=== PATIENT | male | born 1970 | race American Indian/Alaskan Native ===

== ENCOUNTER 2019-07-19 15:09 | Emergency (ER) | payer SELFPAY ==
--- NOTE | 2019-07-19 15:31 | Emergency Department Report ---
Blank Doc - Documentation Documentation: 48-year-old male that presents with right lateral rib pain and SOB. Denies any injuries or trauma. This initial assessment/diagnostic orders/clinical plan/treatment(s) is/are subject to change based on patient's health status, clinical progression and re- assessment by fellow clinical providers in the ED. Further treatment and workup at subsequent clinical providers discretion. Patient/guardians urged not to elope from the ED as their condition may be serious if not clinically assessed and managed. Initial orders include: 1- Patient sent to [facility] for further evaluation and treatment 2- CXR 3- labs 4- EKG
--- NOTE | 2019-07-19 16:04 | XRay Report ---
CHEST 2 VIEWS INDICATION / CLINICAL INFORMATION: Chest Pain. COMPARISON: None available. FINDINGS: SUPPORT DEVICES: None. HEART / MEDIASTINUM: No significant abnormality. LUNGS / PLEURA: No significant pulmonary or pleural abnormality. No pneumothorax. ADDITIONAL FINDINGS: No significant additional findings. IMPRESSION: 1. No acute abnormality of the chest. Signer Name: Cordell Liu MD Signed: 07/19/2019 4:00 PM Workstation Name: [id number]
[2019-07-19 16:52] LABS: Basophils % (Auto) 0.7 % (0.0-1.8); Eosinophils # (Auto) 0.2 K/mm3 (0.0-0.4); Eosinophils % (Auto) 2.8 % (0.0-4.3); Hematocrit 51.1 % (35.5-45.6); Hemoglobin 17.5 gm/dl (11.8-15.2); Lymphocytes % (Auto) 15.1 % (13.4-35.0); Mean Corpuscular HGB Conc 34 % (32-34); Mean Corpuscular Volume 87 fl (84-94); Monocytes # (Auto) 0.6 K/mm3 (0.0-0.8); Monocytes % (Auto) 9.3 % (0.0-7.3); Platelet Count 202 K/mm3 (140-440); Red Blood Count 5.91 M/mm3 (3.65-5.03); Red Cell Distribution Width 13.5 % (13.2-15.2)
[2019-07-19 17:35] LABS: Alanine Aminotransferase 17 units/L (7-56); Albumin 4.5 g/dL (3.9-5); BUN/Creatinine Ratio 14; Blood Urea Nitrogen 15 mg/dL (9-20); Hemolysis Index 29
[2019-07-19] MEDS ORDERED: CYCLOBENZAPRINE 10 MG TAB PO ONE (18:34)
--- NOTE | 2019-07-19 19:02 | Emergency Department Report ---
ED General Adult HPI - General Chief complaint: Dyspnea/Respdistress Stated complaint: NAOMY Time Seen by Provider: 07/19/19 15:30 Source: patient, family Mode of arrival: Ambulatory Limitations: No Limitations - History of Present Illness Initial comments: Patient is a 48-year-old male presents emergency room with complaints of right- sided rib pain that began 3 days ago. He has associated dry cough and pain with taking a deep breath. He denies any productive cough, fever, nausea, vomiting, diarrhea, congestion. He states that he has been moving houses and has been lifting a lot of heavy furniture, he denies any fall or injury. He has a past medical history of sarcoidosis but does not take any medications for it and has not had an issue in over 2 years. He states he also has a history of hypertension but has not taken medications for it in over a year. He denies any allergies to medications. He is a non-smoker. - Related Data Previous Rx's Medication Instructions Recorded Last Taken Type Naproxen [EC-Naprosyn] 500 mg PO BID PRN #14 tablet. 07/20/19 Unknown Rx methOCARBAMOL [Robaxin TAB] 500 mg PO QHS PRN #10 tablet 07/20/19 Unknown Rx Allergies Allergy/AdvReac Type Severity Reaction Status Date / Time No Known Allergies Allergy Verified 07/19/19 21:17 ED Review of Systems ROS: Stated complaint: NAOMY Other details as noted in HPI Comment: All other systems reviewed and negative ED Past Medical Hx - Past Medical History Previous Medical History?: Yes Additional medical history: Sarcoidosis - Surgical History Past Surgical History?: Yes Additional Surgical History: Right hip replacement - Social History Smoking Status: Never Smoker Substance Use Type: None - Medications Home Medications: Home Medications Medication Instructions Recorded Confirmed Last Taken Type Naproxen [EC-Naprosyn] 500 mg PO BID PRN #14 tablet. 07/20/19 Unknown Rx methOCARBAMOL [Robaxin TAB] 500 mg PO QHS PRN #10 tablet 07/20/19 Unknown Rx ED Physical Exam - General Limitations: No Limitations General appearance: alert, in no apparent distress - Head Head exam: Present: atraumatic, normocephalic - Eye Eye exam: Present: normal appearance - ENT ENT exam: Present: mucous membranes moist - Respiratory Respiratory exam: Present: normal lung sounds bilaterally, chest wall tenderness (right lower anterior chest wall ttp, no deformity, no ecchymosis, no crepitus). Absent: respiratory distress, wheezes, rales, rhonchi, stridor, accessory muscle use, decreased breath sounds, prolonged expiratory - Cardiovascular Cardiovascular Exam: Present: regular rate, normal rhythm, normal heart sounds. Absent: systolic murmur, diastolic murmur, rubs, gallop - Neurological Exam Neurological exam: Present: alert, oriented X3 - Psychiatric Psychiatric exam: Present: normal affect, normal mood - Skin Skin exam: Present: warm, dry, intact ED Course Vital Signs 07/19/19 07/19/19 15:30 21:05 Temperature 97.5 F L Pulse Rate 86 87 Respiratory 22 17 Rate Blood Pressure 157/115 Blood Pressure 156/103 [Left] O2 Sat by Pulse 98 97 Oximetry ED Medical Decision Making - Lab Data Result diagrams: 07/19/19 16:30 07/19/19 16:30 Lab Results 07/19/19 07/19/19 07/19/19 Range/Units 16:30 16:30 18:30 WBC 6.5 (4.5-11.0) K/mm3 RBC 5.91 H (3.65-5.03) M/mm3 Hgb 17.5 H (11.8-15.2) gm/dl Hct 51.1 H (35.5-45.6) % MCV 87 (84-94) fl MCH 30 (28-32) pg MCHC 34 (32-34) % RDW 13.5 (13.2-15.2) % Plt Count 202 (140-440) K/mm3 Lymph % (Auto) 15.1 (13.4-35.0) % Ogle % (Auto) 9.3 H (0.0-7.3) % Eos % (Auto) 2.8 (0.0-4.3) % Baso % (Auto) 0.7 (0.0-1.8) % Lymph # 1.0 L (1.2-5.4) K/mm3 Ogle # 0.6 (0.0-0.8) K/mm3 Eos # 0.2 (0.0-0.4) K/mm3 Baso # 0.0 (0.0-0.1) K/mm3 Seg Neutrophils % 72.1 H (40.0-70.0) % Seg Neutrophils # 4.7 (1.8-7.7) K/mm3 D-Dimer 414.45 H (0-234) ng/mlDDU Sodium 138 (137-145) mmol/L Potassium 4.2 (3.6-5.0) mmol/L Chloride 98.2 (98-107) mmol/L Carbon Dioxide 26 (22-30) mmol/L Anion Gap 18 mmol/L BUN 15 (9-20) mg/dL Creatinine 1.1 (0.8-1.5) mg/dL Estimated GFR > 60 ml/min BUN/Creatinine Ratio 14 % Glucose 102 H (75-100) mg/dL Calcium 10.0 (8.4-10.2) mg/dL Total Bilirubin 0.70 (0.1-1.2) mg/dL AST 18 (5-40) units/L ALT 17 (7-56) units/L Alkaline Phosphatase 127 (35-129) units/L Troponin T < 0.010 (0.00-0.029) ng/mL Total Protein 7.5 (6.3-8.2) g/dL Albumin 4.5 (3.9-5) g/dL Albumin/Globulin Ratio 1.5 % 03//20 Range/Units 19:01 WBC (4.5-11.0) K/mm3 RBC (3.65-5.03) M/mm3 Hgb (11.8-15.2) gm/dl Hct (35.5-45.6) % MCV (84-94) fl MCH (28-32) pg MCHC (32-34) % RDW (13.2-15.2) % Plt Count (140-440) K/mm3 Lymph % (Auto) (13.4-35.0) % Ogle % (Auto) (0.0-7.3) % Eos % (Auto) (0.0-4.3) % Baso % (Auto) (0.0-1.8) % Lymph # (1.2-5.4) K/mm3 Ogle # (0.0-0.8) K/mm3 Eos # (0.0-0.4) K/mm3 Baso # (0.0-0.1) K/mm3 Seg Neutrophils % (40.0-70.0) % Seg Neutrophils # (1.8-7.7) K/mm3 D-Dimer (0-234) ng/mlDDU Sodium (137-145) mmol/L Potassium (3.6-5.0) mmol/L Chloride (98-107) mmol/L Carbon Dioxide (22-30) mmol/L Anion Gap mmol/L BUN (9-20) mg/dL Creatinine (0.8-1.5) mg/dL Estimated GFR ml/min BUN/Creatinine Ratio % Glucose (75-100) mg/dL Calcium (8.4-10.2) mg/dL Total Bilirubin (0.1-1.2) mg/dL AST (5-40) units/L ALT (7-56) units/L Alkaline Phosphatase (35-129) units/L Troponin T < 0.010 (0.00-0.029) ng/mL Total Protein (6.3-8.2) g/dL Albumin (3.9-5) g/dL Albumin/Globulin Ratio % Lab Results 07/19/19 07/19/19 07/19/19 Range/Units 16:30 16:30 18:30 WBC 6.5 (4.5-11.0) K/mm3 RBC 5.91 H (3.65-5.03) M/mm3 Hgb 17.5 H (11.8-15.2) gm/dl Hct 51.1 H (35.5-45.6) % MCV 87 (84-94) fl MCH 30 (28-32) pg MCHC 34 (32-34) % RDW 13.5 (13.2-15.2) % Plt Count 202 (140-440) K/mm3 Lymph % (Auto) 15.1 (13.4-35.0) % Ogle % (Auto) 9.3 H (0.0-7.3) % Eos % (Auto) 2.8 (0.0-4.3) % Baso % (Auto) 0.7 (0.0-1.8) % Lymph # 1.0 L (1.2-5.4) K/mm3 Ogle # 0.6 (0.0-0.8) K/mm3 Eos # 0.2 (0.0-0.4) K/mm3 Baso # 0.0 (0.0-0.1) K/mm3 Seg Neutrophils % 72.1 H (40.0-70.0) % Seg Neutrophils # 4.7 (1.8-7.7) K/mm3 D-Dimer 414.45 H (0-234) ng/mlDDU Sodium 138 (137-145) mmol/L Potassium 4.2 (3.6-5.0) mmol/L Chloride 98.2 (98-107) mmol/L Carbon Dioxide 26 (22-30) mmol/L Anion Gap 18 mmol/L BUN 15 (9-20) mg/dL Creatinine 1.1 (0.8-1.5) mg/dL Estimated GFR > 60 ml/min BUN/Creatinine Ratio 14 % Glucose 102 H (75-100) mg/dL Calcium 10.0 (8.4-10.2) mg/dL Total Bilirubin 0.70 (0.1-1.2) mg/dL AST 18 (5-40) units/L ALT 17 (7-56) units/L Alkaline Phosphatase 127 (35-129) units/L Troponin T < 0.010 (0.00-0.029) ng/mL Total Protein 7.5 (6.3-8.2) g/dL Albumin 4.5 (3.9-5) g/dL Albumin/Globulin Ratio 1.5 % 03/03/20 Range/Units 19:01 WBC (4.5-11.0) K/mm3 RBC (3.65-5.03) M/mm3 Hgb (11.8-15.2) gm/dl Hct (35.5-45.6) % MCV (84-94) fl MCH (28-32) pg MCHC (32-34) % RDW (13.2-15.2) % Plt Count (140-440) K/mm3 Lymph % (Auto) (13.4-35.0) % Ogle % (Auto) (0.0-7.3) % Eos % (Auto) (0.0-4.3) % Baso % (Auto) (0.0-1.8) % Lymph # (1.2-5.4) K/mm3 Ogle # (0.0-0.8) K/mm3 Eos # (0.0-0.4) K/mm3 Baso # (0.0-0.1) K/mm3 Seg Neutrophils % (40.0-70.0) % Seg Neutrophils # (1.8-7.7) K/mm3 D-Dimer (0-234) ng/mlDDU Sodium (137-145) mmol/L Potassium (3.6-5.0) mmol/L Chloride (98-107) mmol/L Carbon Dioxide (22-30) mmol/L Anion Gap mmol/L BUN (9-20) mg/dL Creatinine (0.8-1.5) mg/dL Estimated GFR ml/min BUN/Creatinine Ratio % Glucose (75-100) mg/dL Calcium (8.4-10.2) mg/dL Total Bilirubin (0.1-1.2) mg/dL AST (5-40) units/L ALT (7-56) units/L Alkaline Phosphatase (35-129) units/L Troponin T < 0.010 (0.00-0.029) ng/mL Total Protein (6.3-8.2) g/dL Albumin (3.9-5) g/dL Albumin/Globulin Ratio % Vital Signs 07/19/19 07/19/19 15:30 21:05 Temperature 97.5 F L Pulse Rate 86 87 Respiratory 22 17 Rate Blood Pressure 157/115 Blood Pressure 156/103 [Left] O2 Sat by Pulse 98 97 Oximetry - EKG Data EKG shows normal: sinus rhythm, axis, intervals, QRS complexes Rate: normal - EKG Data 07/20/19 00:08 early repolarization pattern no STEMI - Radiology Data Radiology results: report reviewed CHEST 2 VIEWS INDICATION / CLINICAL INFORMATION: Chest Pain. COMPARISON: None available. FINDINGS: SUPPORT DEVICES: None. HEART / MEDIASTINUM: No significant abnormality. LUNGS / PLEURA: No significant pulmonary or pleural abnormality. No pneumothorax. ADDITIONAL FINDINGS: No significant additional findings. IMPRESSION: 1. No acute abnormality of the chest. Signer Name: Cordell Liu MD Signed: 07/19/2019 4:00 PM Workstation Name: [id number] Transcribed By: KANE Dictated By: Cordell Liu MD Electronically Authenticated By: Cordell Liu MD Signed Date/Time: 07/19/19 1600 DD/ 1600 TD/TT: CT angiography of the chest with 2-D reconstructions INDICATION: Right-sided chest pain and elevated d-dimer Thin section axial images were obtained as well as 2-D reformatted MIP images in all 3 planes FINDINGS: There is no hilar or mediastinal adenopathy. No pleural or pericardial effusion. Lung windows show no nodules, masses or infiltrates. There is no thoracic aortic aneurysm or dissection present. Routine axial images as well as 2-D reconstructions through the pulmonary arteries show no evidence of emboli. IMPRESSION: Negative chest CTA Automated exposure control was utilized to diminish radiation dose. Signer Name: Renaldo Roberto MD Signed: 07/19/2019 11:58 PM Workstation Name: [id number] Transcribed By: CINDY Dictated By: Renaldo Roberto MD Electronically Authenticated By: Renaldo Roberto MD Signed Date/Time: 07/19/192357 DD/ 54 TD/TT: - Medical Decision Making Patient is a 48-year-old male presents emergency room with complaints of right- sided rib pain that began 3 days ago. He has associated dry cough and pain with taking a deep breath. He denies any productive cough, fever, nausea, vomiting, diarrhea, congestion. He states that he has been moving houses and has been lifting a lot of heavy furniture, he denies any fall or injury. He has a past medical history of sarcoidosis but does not take any medications for it and has not had an issue in over 2 years. He states he also has a history of hypertension but has not taken medications for it in over a year. He denies any allergies to medications. He is a non-smoker. Vitals with slightly elevated blood pressure otherwise normal. Advised patient to see a primary care physician regarding the blood pressure. Labs significant for elevated d-dimer. Troponin is negative x2. EKG with normal early repolarization pattern, no STEMI. Chest x-ray with no acute process. CT angio chest with no acute abnormality. on exam: right lower anterior chest wall ttp, no deformity, no ecchymosis, no crepitus. Patient did not drive to the emergency department and was given Flexeril and tramadol and symptoms improved. Heart score is 2, ERIS score 0, low risk for cardiac event. pt will be referred to outpatient cardiology. Please take medication as prescribed as needed. Do not drive or operate heavy machinery while taking muscle relaxer due to potential for drowsiness. May use ice pack, heating pad, rest, Epson salt bath. Follow-up with a primary care doctor. Follow-up with orthopedic doctor. Return to the emergency room for any new or worsening symptoms. - Differential Diagnosis Costochondritis, ACS, PE, dissection, muscle strain, PNA Critical care attestation.: If time is entered above; I have spent that time in minutes in the direct care of this critically ill patient, excluding procedure time. ED Disposition Clinical Impression: Rib pain on right side, Pleuritic chest pain, Dry cough Disposition: TO HOME OR SELFCARE Is pt being admited?: No Does the pt Need Aspirin: No Condition: Stable Instructions: Chest Pain (ED), Costochondritis (ED) Additional Instructions: Please take medication as prescribed as needed. Do not drive or operate heavy machinery while taking muscle relaxer due to potential for drowsiness. May use ice pack, heating pad, rest, Epson salt bath. Follow-up with a primary care doctor. Follow-up with orthopedic doctor. Return to the emergency room for any new or worsening symptoms. Prescriptions: methOCARBAMOL [Robaxin TAB] 500 mg PO QHS PRN #10 tablet PRN Reason: Muscle Spasm Naproxen [EC-Naprosyn] 500 mg PO BID PRN #14 tablet.dr MERIDA Reason: pain Referrals: MALU ORTEGA MD [Staff Physician] - 3-5 Days [facility] [Outside] - 3-5 Days [facility] [Outside] - 3-5 Days JAYLENE BELLO MD [Staff Physician] - 3-5 Days Time of Disposition: 00:04 Print Language: ISRAELI
[2019-07-19] MEDS ORDERED: traMADol 50 MG TAB PO ONE (21:08)
[2019-07-19] MEDS ORDERED: traMADol 50 MG TAB ONE (21:09)
[2019-07-19 21:22] VITALS: BP 156/103
--- NOTE | 2019-07-20 00:02 | Cat Scan Report ---
CT angiography of the chest with 2-D reconstructions INDICATION: Right-sided chest pain and elevated d-dimer Thin section axial images were obtained as well as 2-D reformatted MIP images in all 3 planes FINDINGS: There is no hilar or mediastinal adenopathy. No pleural or pericardial effusion. Lung windo ws show no nodules, masses or infiltrates. There is no thoracic aortic aneurysm or dissection present . Routine axial images as well as 2-D reconstructions through the pulmonary arteries show no evidence of emboli. IMPRESSION: Negative chest CTA Automated exposure control was utilized to diminish radiation dose. Signer Name: Renaldo Roberto MD Signed: 07/19/2019 11:58 PM Workstation Name: [id number]
== END 2019-07-20 00:25 | disposition home or self-care (01) ==
LOC: ED 15:09
DX: R07.81 Pleurodynia (principal); R09.1 Pleurisy; R05 Cough; Z79.899 Other long term (current) drug therapy; Z98.890 Other specified postprocedural states
CPT/HCPCS: 36415; 71046; 71275; 80053; 84484; 85025; 85379; 93005; 93010; 99285; Q9967